=== PATIENT | female | born 1950 | race Two or more races ===

== ENCOUNTER → 2024-07-11 | Outpatient (CLI) | payer MEDICARE, SELFPAY ==
--- NOTE | 2024-07-11 11:45 | XR_ITS ---
Examination: Screening digital mammography, bilateral Computer aided detection 3-D breast Tomosynthesis, bilateral Date and time of exam: July 11, 2024 1127 hours No priors Indication: Screening Technique: Nonmagnified MLO, CC views of the breasts to been obtained, reconstructed from 3-D Tomosynthesis images. R2 computer aided detection program utilized for evaluation of suspicious masses and/or abnormal calcifications. 3-D Tomosynthesis images obtained. Findings: Scattered areas of fibroglandular density 4 mm nodule nipple level right breast 5 mm nodule 12:00 position left breast Impression: BI-RADS Category 0: Incomplete: Need additional imaging evaluation 4 mm nodule nipple level right breast, recommend follow-up spot tomographic views 5 mm nodule 12:00 position left breast, recommend follow-up spot tomographic views Recommend bilateral breast sonography follow-up to complete workup
== END | disposition home or self-care (01) ==
LOC: CDIM 11:15
PROVIDERS: Referring Provider Physician Assistant Medical; Visit Provider Physician Assistant Medical
DX: Z12.31 Encounter for screening mammogram for malignant neoplasm of breast (principal); N63.25 Unspecified lump in the left breast, overlapping quadrants; N63.10 Unspecified lump in the right breast, unspecified quadrant
CPT/HCPCS: 77063; 77067

== ENCOUNTER → 2024-07-17 | Outpatient (CLI) | payer MEDICARE, MEDICAID, SELFPAY ==
--- NOTE | 2024-07-17 13:20 | XR_ITS ---
Examination: Bone densitometry Date and time of exam:July 17, 2024 1301 hours INDICATIONS: Menopause age 53 Technique: Lumbar spine and hip total bone mineralization values of an calculated. Peak reference and age match control results have been displayed. Findings: Lumbar spine total bone mineralization is1.040 gm/cm2. This is 0.1 standard deviations below peak reference. This is 2.2 standard deviations above age-matched controls. Hip total bone mineralization is 1.138 gm/cm2 This is 1.3 standard deviations above peak reference. This is 2.9 standard deviations above age-matched controls Impression: There is normal mineralization based on lumbar spine measurements. There is normal mineralization based on hip measurements
== END | disposition home or self-care (01) ==
PROVIDERS: PCP Physician Assistant Medical; Referring Provider Physician Assistant Medical; Visit Provider Physician Assistant Medical
DX: Z13.820 Encounter for screening for osteoporosis (principal)
CPT/HCPCS: 77080

== ENCOUNTER → 2024-09-04 | Outpatient (CLI) | payer MEDICARE, MEDICAID, SELFPAY ==
--- NOTE | 2024-09-04 13:00 | XR_ITS ---
Examination: Breast ultrasound complete, bilateral Date and time of exam: September 04, 2024 1420 hours INDICATIONS: Mammogram July 11, 2024 4 mm nodule nipple level right breast 5 mm nodule 12:00 position left breast Technique: Real-time grayscale ultrasonographic imaging bilateral breasts, including all 4 quadrants as well as nipple retroareolar and axillary regions. Findings: Sonographic images right breast No cystic or solid mass Sonographic images left breast 12:00 cyst 7 x 5 mm No solid nodules IMPRESSION: BI-RADS Category 2: Benign findings
--- NOTE | 2024-09-04 14:15 | XR_ITS ---
Examination: Diagnostic digital mammography, bilateral Computer aided detection 3-D breast Tomosynthesis, bilateral Date and time of exam: September 04, 2024 1432 hours INDICATIONS: Mammogram July 11 2024 4 mm nodule nipple level right breast, 5 mm nodule upper left breast Technique: Nonmagnified MLO, CC views of the breasts to been obtained, reconstructed from 3-D Tomosynthesis images. R2 computer aided detection program utilized for evaluation of suspicious masses and/or abnormal calcifications. 3-D Tomosynthesis images obtained. Findings: Scattered areas of fibroglandular density Spot compression films demonstrate 4 mm nodule nipple level right breast and 5 mm nodule upper left breast probably benign Impression: BI-RADS Category 3: Probably benign findings One additional 6 month bilateral mammography follow-up is needed.
== END | disposition home or self-care (01) ==
PROVIDERS: PCP Physician Assistant Medical; Referring Provider Physician Assistant Medical; Visit Provider Physician Assistant Medical
DX: R92.333 Mammographic heterogeneous density, bilateral breasts (principal); N60.02 Solitary cyst of left breast
CPT/HCPCS: 76641; 77062; 77066; G0279

== ENCOUNTER 2024-11-18 09:19 | Emergency (ER) | payer MEDICARE, MEDICAID, SELFPAY ==
[2024-11-18 09:43] VITALS: BP 157/87; PULSE 65; RESP 19; TEMP 37.1; O2SAT 97
[2024-11-18 09:44] VITALS: BMI 34.7
--- NOTE | 2024-11-18 10:08 | EKG_ITS ---
[facility] Test Date: 2024-11-18 Pat Name: OXANA ECHOLS Department: Room: - Gender: Female [employer]: : 1950 Requested By: Nile Florez Order Number: [id number] Reading MD: Nile Florez Measurements Intervals [place] Rate: 66 P: 12 MI: 166 QRS: 28 QRSD: 85 T: 76 QT: 394 QTc: 416 Interpretive Statements SINUS RHYTHM NONSPECIFIC T-WAVE ABNORMALITY No previous ECG available for comparison /[id number]/S0/[id number]
--- NOTE | 2024-11-18 10:08 | XR_ITS ---
Examination: PA lateral chest 2 views TECHNIQUE: Upright PA lateral chest 2 views Exam date and time: September 20, 2024 10:30 AM INDICATIONS: Chest pain beginning 3 days ago. FINDINGS: Normal heart size. Lungs are clear. The osseous structures are intact IMPRESSION: No active disease
--- NOTE | 2024-11-18 10:08 | PD.EDBACK ---
ED Back Injury Pain RME/HPI General Chief Complaint: Back Pain/Injury Stated Complaint: UPPER BACK PAIN Time Seen by Provider: 11/18/24 09:53 Source: patient Arrival date/time: 11/18/24 09:19 74-year-old female with no known medical history presents to the emergency room with a chief complaint of left-sided upper thoracic back pain that radiates to the left chest x 4 days Mode of arrival: ambulatory Limitations: no limitations Related Data Allergies Allergy/AdvReac Type Severity Reaction Status Date / Time No Known Allergies Allergy Verified 11/18/24 09:23 Review of Systems Review of Systems Systems Reviewed: All systems reviewed, normal except as documented Constitutional Constitutional: Reports system reviewed and no additional complaints, except as documented, Denies fatigue, Denies fever(s), Denies headache(s) and Denies weakness Eyes Eyes: Reports system reviewed and no additional complaints, except as documented, Denies blurry vision and Denies change in vision ENT Ears, Nose, Mouth, and Throat: Reports system reviewed and no additional complaints, except as documented, Denies otalgia, Denies headache(s), Denies nasal congestion, Denies throat swelling and Denies vertigo Cardiovascular Cardiovascular: Reports system reviewed and no additional complaints, except as documented, Denies chest pain, Denies chest pain with activity, Denies dyspnea and Denies dyspnea on exertion Respiratory Respiratory: Reports system reviewed and no additional complaints, except as documented, Denies chest congestion, Denies cough, Denies dyspnea, Denies dyspnea on exertion and Denies wheezing Gastrointestinal Gastrointestinal: Reports system reviewed and no additional complaints, except as documented, Denies abdominal pain, Denies cramping, Denies nausea and Denies vomiting Genitourinary Genitourinary: Reports system reviewed and no additional complaints, except as documented Musculoskeletal Musculoskeletal: Reports system reviewed and no additional complaints, except as documented and Reports back pain Integumentary/Breasts Skin/Breast: Reports system reviewed and no additional complaints, except as documented and Denies wounds Neurologic Neurologic: Reports system reviewed and no additional complaints, except as documented, Denies confusion, Denies headache(s), Denies lack of coordination, Denies vertigo and Denies weakness Psychiatric Psychiatric: Reports system reviewed and no additional complaints, except as documented, Denies anxiety, Denies confusion, Denies depression, Denies paranoia, Denies suicidal ideation and Denies tactile hallucinations Endocrine Endocrine: Reports system reviewed and no additional complaints, except as documented and Denies fatigue Hematologic/Lymphatic Hematologic/Lymphatic: Reports system reviewed and no additional complaints, except as documented and Denies lymphadenopathy Allergic/Immunologic Allergic/Immunologic: Reports system reviewed and no additional complaints, except as documented, Denies throat swelling, Denies urticaria and Denies wheezing Past Medical History Social History SMOKING STATUS: Never smoker ED Exam General Limitations: Present no limitations General appearance: Present alert and in no apparent distress Head Head exam: Present atraumatic Eye Eye exam: Present normal appearance, PERRL and EOMI ENT ENT exam: Present normal exam, normal oropharynx and mucous membranes moist Neck Neck exam: Present normal inspection, full ROM and trachea midline Chest Chest inspection: Present normal inspection and symmetric chest wall rise Respiratory Respiratory exam: Present normal lung sounds bilaterally Cardiovascular Cardiovascular exam: Present regular rate, normal rhythm and normal heart sounds Abdominal Exam Abdominal exam: Present soft and normal bowel sounds Extremities Exam Extremities exam: Present normal inspection and full ROM Back Exam Back exam: Present normal inspection and full ROM Back 1 view image:  1. Patient has pain and tenderness to the right side of her thoracic area of her back. The pain is not in the actual vertebrae and is in the muscular area between the scapula and the spine. Patient states the pain does radiate to the right side of her chest Neurological Exam Neurological exam: Present alert, oriented X3 and CN II-XII intact Psychiatric Psychiatric exam: Present normal affect and normal mood Skin Skin exam: Present warm, dry, intact and normal color Course Quality Measures none Orders Category Date Time Status EKG (ED ONLY) *Do not use* NOW Care 11/18/24 10:08 Completed EKG (ED Only) Stat Exams 11/18/24 10:08 Draft XR chest 2V Stat Exams 11/18/24 10:08 Completed B-Type Natriuretic Peptide Stat Lab 11/18/24 10:41 Completed CBC Stat Lab 11/18/24 10:41 Completed Comprehensive Metabolic Panel Stat Lab 11/18/24 10:41 Completed Magnesium Stat Lab 11/18/24 10:41 Completed Partial Thromboplastin Time Stat Lab 11/18/24 10:41 Completed Prothrombin Time with INR Stat Lab 11/18/24 10:41 Completed Troponin I Stat Lab 11/18/24 10:41 Completed Vital Signs Vital signs: Vital Signs Temperature 98.7 F 11/18/24 09:43 Pulse Rate 65 11/18/24 09:43 Respiratory Rate 19 11/18/24 09:43 Blood Pressure 157/87 H 11/18/24 09:43 Pulse Oximetry (%) 97 11/18/24 09:43 Oxygen Delivery Method Room Air 11/18/24 09:43 O2 saturation 97% within normal limits Back Pain / Injury MDM Narrative MDM Narrative:: 74-year-old female with no known medical history presents to the emergency room with a chief complaint of left-sided upper thoracic back pain that radiates to the left chest x 4 days Patient is hemodynamically stable and in no apparent distress Physical examination shows tenderness and pain to the left side of the thoracic area of her spine. The pain and tenderness is not on the vertebrae it is in between the vertebrae and the scapula. It appears to be muscular as there is pain with tenderness to that area. The patient also states that the pain radiates to the left side of her chest. A cardiac workup was completed and was negative for any acute findings. Troponin was negative CBC CMP were negative EKG was within normal limits Patient was discharged and educated to follow-up with primary care provider in the next 24 to 48 hours and return to the emergency room for any evidence of worsening signs or symptoms Patient data External records reviewed:: [facility] previous records Clinical information provided by:: patient Social determinants that could affect healthcare access:: none Patient has the following chronic illnesses:: No chronic illness How is presenting disease/condition affected by chronic disease/condition?: no chronic disease Evaluation data The following diagnostics were reviewed and interpreted by me:: lab results and radiology exam(s) Lab and/or radiology exams considered but not ordered:: Labs and radiology exams considered and ordered Interpretation Summary: Chest [id number]: Normal heart size. Lungs are clear. The osseous structures are intact IMPRESSION: No active disease Medications / Prescriptions Medications or Prescriptions considered but not ordered:: Medication not given Medication administrations:: Medication not given Consultations Consultation(s) initiated? (list below): No Diagnosis Differential diagnosis back pain/injury: thoracic back pain and other (Chest pain/STEMI/NSTEMI) Most likely diagnosis given after review of the tests above:: Thoracic back pain Admission Indicated Admission indicated?: not indicated Admission Request Was there a request for admission?: No Disposition Plan Disposition Plan: Discharge Discharge Attestation Discharge Attestation: The patient and all family members were given an opportunity to ask questions and understood the discharge instructions. Discharge instructions specifically effects, indications for sooner follow up or return to the emergency department, and the expected course of current diagnosis. Patient condition: Stable Discharge Plan Plan Patient Disposition: HOME (Self Care) Disposition Comment: Stable Prescriptions/Referrals Referrals: Cipriano Irby MD [Primary Care Provider] - In 1 week Problem List Clinical Impression: Strain of thoracic region Patient/Caregiver Discharge Instructions Education Materials: ED Muscle Strain, Extremity Additional Instructions: Por favor, consulte con farr m?dico de cabecera en las pr?ximas 24 a 48 horas. Farr examen card?aco fue normal. Es probable que justin dolor sea muscular. Ante cualquier signo de empeoramiento de los signos o s?ntomas, acuda inmediatamente a urgencias. Print Language: [place]an Stand Alone Forms: Reanna Award Info., Patient Portal Info Letter PA/[employer] Supervising Physician PA/[employer] Supervising Physician: Dr. Billy
[2024-11-18 10:53] LABS: Basophils % (Auto) 0 % (0-2.5); Eosinophils # (Auto) 0.1 Thou/mm3 (0.0-0.5); Eosinophils % (Auto) 1 % (0-10); Hematocrit 41.5 % (36.0-46.0); Immature Granulocytes % (Auto) 0 % (0-0); Immature Granulocytes Auto 0.03 Thou/mm3 (0.00-0.00); Lymphocytes # (Auto) 2.1 Thou/mm3 (1.0-4.8); Lymphocytes % (Auto) 25 % (10-50); Mean Corpuscular HGB Conc 33.7 g/dl (31.0-37.0); Mean Corpuscular Hemoglobin 29.7 pg (25.0-35.0); Mean Corpuscular Volume 88 fL (80-100); Monocytes # (Auto) 0.6 Thou/mm3 (0.0-0.8); Monocytes % (Auto) 8 % (0-12); Neutrophils # (Auto) 5.3 Thou/mm3 (1.8-7.7); Neutrophils % (Auto) 66 % (37-80); Nucleated Red Blood Cell % 0 /100 WBC (0); Platelet Count 300 Thou/mm3 (140-440); RDW Standard Deviation 41.5 fL (36.4-46.3); Red Blood Count 4.72 Miln/mm3 (4.00-5.20); White Blood Count 8.1 Thou/mm3 (3.6-11.0)
[2024-11-18 11:09] LABS: Partial Thromboplastin Time 29.2 Seconds (22.0-36.0); Prothrombin Time 11.2 Seconds (9.0-12.2)
[2024-11-18 11:13] LABS: Alanine Aminotransferase 20 U/L (10-49); Albumin, Serum 4.5 gm/dL (3.4-4.8); Albumin/Globulin Ratio 1.5 (1.2-2.2); Alkaline Phosphatase 94 U/L (46-116); Anion Gap 5 (7-16); Aspartate Amino Transferase 24 U/L (0-34); B-Type Natriuretic Peptide 54 pg/mL (0-100); BUN/Creatinine Ratio 9 Ratio (12-20); Bilirubin,Total 0.4 mg/dL (0.3-1.2); Blood Urea Nitrogen 8 mg/dL (9-23); Calcium 9.4 mg/dL (8.3-10.6); Calcium (Corrected) 9.4 mg/dL (8.5-10.1); Carbon Dioxide 28.1 mMol/L (20.0-31.0); Chloride 107 mMol/L (98-107); Creatinine (Component) 0.9 mg/dL (0.6-1.3); Estimated Creatinine Clearance 59.8 mL/min (>60); Globulin 3.1 gm/dL (2.3-3.5); Glucose 108 mg/dL (74-106); Magnesium 2.2 mg/dL (1.6-2.6); Osmolality,Calculated 278 (275-295); Potassium 3.9 mMol/L (3.4-5.1); Sodium 140 mMol/L (136-145); Total Protein 7.6 gm/dL (5.7-8.2); Troponin I < 0.002 ng/mL (0.0-0.045); eGFR > 60 See Note
== END 2024-11-18 11:36 | disposition home or self-care (01) ==
PROVIDERS: Nurse Practitioner Family; Emergency Provider Family Medicine; PCP Family Medicine
DX: S29.012A Strain of muscle and tendon of back wall of thorax, initial encounter (principal); R07.9 Chest pain, unspecified; R94.31 Abnormal electrocardiogram [ECG] [EKG]; X58.XXXA Exposure to other specified factors, initial encounter
CPT/HCPCS: 36415; 71046; 80053; 83735; 83880; 84484; 85025; 85610; 85730; 99283

== ENCOUNTER → 2025-03-16 | Outpatient (CLI) | payer MEDICARE, MEDICAID, SELFPAY ==
--- NOTE | 2025-03-16 09:00 | XR_ITS ---
Examination: Thyroid sonography complete TECHNIQUE: Grayscale sonographic images thyroid lobes Date and time: March 16, 2025 0940 hours INDICATIONS: Palpable thyroid nodules on examination 2 months ago FINDINGS: Right thyroid 4.5 cm Upper pole cyst 6 x 5 mm Lower pole cyst 3 x 3 mm Lower pole solid nodule 7 x 5 mm Isthmus cyst 4 x 3 mm Left thyroid 4.0 cm Lower pole cyst 3 x 4 mm IMPRESSION: Small lower pole right thyroid nodule
== END | disposition home or self-care (01) ==
LOC: CDIM 09:11
PROVIDERS: PCP Physician Assistant Medical; Referring Provider Physician Assistant Medical; Visit Provider Physician Assistant Medical
DX: E04.1 Nontoxic single thyroid nodule (principal)
CPT/HCPCS: 76536

== ENCOUNTER → 2025-03-24 | Outpatient (CLI) | payer MEDICARE, MEDICAID, SELFPAY ==
[2025-03-23 13:36] LABS: Basophils # (Auto) 0.0 Thou/mm3 (0.0-0.2); Basophils % (Auto) 0 % (0-2.5); Eosinophils # (Auto) 0.1 Thou/mm3 (0.0-0.5); Eosinophils % (Auto) 1 % (0-10); Hematocrit 39.9 % (36.0-46.0); Hemoglobin 13.5 g/dL (12.0-16.0); Immature Granulocytes Auto 0.03 Thou/mm3 (0.00-0.00); Lymphocytes # (Auto) 2.4 Thou/mm3 (1.0-4.8); Lymphocytes % (Auto) 27 % (10-50); Mean Corpuscular HGB Conc 33.8 g/dl (31.0-37.0); Mean Corpuscular Hemoglobin 30.7 pg (25.0-35.0); Mean Corpuscular Volume 91 fL (80-100); Monocytes # (Auto) 0.9 Thou/mm3 (0.0-0.8); Monocytes % (Auto) 10 % (0-12); Neutrophils # (Auto) 5.3 Thou/mm3 (1.8-7.7); Neutrophils % (Auto) 61 % (37-80); Nucleated Red Blood Cell # 0.00 Thou/mm3 (0.00-0.00); Nucleated Red Blood Cell % 0 /100 WBC (0); Platelet Count 273 Thou/mm3 (140-440); RDW Standard Deviation 42.8 fL (36.4-46.3); Red Blood Count 4.40 Miln/mm3 (4.00-5.20); White Blood Count 8.7 Thou/mm3 (3.6-11.0)
[2025-03-23 13:44] LABS: INR 1.0 (0.9-1.3); Partial Thromboplastin Time 27.9 Seconds (22.0-36.0); Prothrombin Time 10.9 Seconds (9.0-12.2)
--- NOTE | 2025-03-24 09:00 | XR_ITS ---
Exam: Ultrasound-guided thyroid fine-needle aspiration. Indication Right thyroid nodule. Exam date: 03/24/2025, 9:20 AM Comparison exam: 03/16/2025 PROCEDURE: After discussion of risks and benefits informed consent was obtained. Patient was placed supine on the exam table. Preliminary ultrasound evaluation again demonstrated a subtle hyperechoic nodule inferior right thyroid pole. This was targeted for fine-needle aspiration. The overlying skin was cleaned and draped in normal sterile surgical fashion. 10 cc 1% lidocaine was used for local anesthesia. Using ultrasound guidance a 25-gauge needle was sequentially advanced into the targeted nodule. Multiple fine-needle aspirates were obtained placed in the appropriate pathology containers and sent to lab for analysis. The needles were withdrawn. Hemostasis was achieved. The access site was covered with sterile dressing. There were no immediate complications. IMPRESSION: Successful right thyroid nodule fine-needle aspirations of the above.
== END | disposition home or self-care (01) ==
PROVIDERS: Radiology Diagnostic Radiology; PCP Physician Assistant Medical; Referring Provider Physician Assistant Medical; Visit Provider Physician Assistant Medical
DX: E04.1 Nontoxic single thyroid nodule (principal); Z01.812 Encounter for preprocedural laboratory examination
CPT/HCPCS: 10005; 36415; 85025; 85610; 85730

== ENCOUNTER → 2025-07-28 | Outpatient (CLI) | payer MEDICARE, MEDICAID, SELFPAY ==
--- NOTE | 2025-07-28 12:30 | XR_ITS ---
Examination: Breast ultrasound complete, bilateral Date and time of exam: July 28, 2025, 1305 hours INDICATIONS: Mammogram September 04, 2024 4 mm nodule nipple level right breast 5 mm nodule upper left breast Technique: Real-time grayscale ultrasonographic imaging bilateral breasts, including all 4 quadrants as well as nipple retroareolar and axillary regions. Findings: Sonographic images right breast No cystic or solid mass Sonographic images left breast 5:00 hypoechoic nodule likely lipoma 3 x 3 mm circumscribed Bilateral retroareolar dilated ducts Impression: BI-RADS Category 2: Benign findings
--- NOTE | 2025-07-28 13:30 | XR_ITS ---
Examination: Diagnostic digital mammography, bilateral Computer aided detection 3-D breast Tomosynthesis, bilateral Date and time of exam: 07/28/2025, 1:24 p.m. Comparisons: June 2024 through August 2024 Indications: Follow-up probably benign bilateral nodules Technique: Nonmagnified MLO, CC views of the breasts to been obtained, reconstructed from 3-D Tomosynthesis images. R2 computer aided detection program utilized for evaluation of suspicious masses and/or abnormal calcifications. 3-D Tomosynthesis images obtained. Findings: There are scattered areas of fibroglandular density. Focal asymmetry persists in the central inferior right breast. 3 previously described abnormality in the left breast does not persist with spot compression views and appears to represent superimposition of normal fibroglandular tissue. Otherwise, no evidence of abnormal masses or suspicious calcifications. Impression: Stable probably benign focal asymmetry right breast as above. 6-month follow-up diagnostic mammogram and possible ultrasound exam recommended. BI-RADS category 3: Probably benign, short term follow-up
== END | disposition home or self-care (01) ==
PROVIDERS: PCP Physician Assistant Medical; Referring Provider Physician Assistant Medical; Visit Provider Physician Assistant Medical
DX: R92.333 Mammographic heterogeneous density, bilateral breasts (principal); N64.89 Other specified disorders of breast
CPT/HCPCS: 76641; 77062; 77066; G0279